=== PATIENT | female | born 2000 | race Caucasian/White ===

== ENCOUNTER 2020-02-06 23:54 | Emergency (ER) | payer OTHER ==
[2020-02-07 02:17] LABS: ABSOLUTE MONOCYTES (AUTO) 0.3 10^3/uL (0.1-1.4); ABSOLUTE NEUT (AUTO) 2.5 10^3/uL (1.7-8.2); BASOPHILS % (AUTO) 0.4 % (0-2); HEMOGLOBIN 12.3 g/dL (12.0-15.5); LYMPHOCYTES % (AUTO) 40.9 % (13-45); MEAN CORPUSCULAR HEMOGLOBIN 30.4 pg (27.0-33.4); MEAN CORPUSCULAR VOLUME 87 fl (80-97); MONOCYTES % (AUTO) 6.8 % (3-13); PLATELET COUNT 194 10^3/uL (150-450); RED BLOOD COUNT 4.03 10^6/uL (3.72-5.28); RED CELL DISTRIBUTION WIDTH 12.8 % (11.5-14.0); SEGMENTED NEUTROPHILS % (AUTO) 50.9 % (42-78); TOTAL CELLS COUNTED % (AUTO) 100 %; WHITE BLOOD COUNT 4.8 10^3/uL (4.0-10.5)
[2020-02-07] MEDS ORDERED: MORPHINE SULFATE 10 MG/ML INJ IV ONE (02:25)
[2020-02-07] MEDS ORDERED: NORMAL SALINE 1000 ML 1,000 ML IV ONE (02:26)
[2020-02-07] MEDS ORDERED: ONDANSETRON HCL INJ/PF 4 MG/2 ML SDV IV ONE (02:26)
[2020-02-07 02:32] LABS: ALBUMIN 4.2 g/dL (3.5-5.0); ALKALINE PHOSPHATASE 48 U/L (38-126); ANION GAP 7 (5-19); ASPARTATE AMINO TRANSFERASE 18 U/L (14-36); BILIRUBIN,DIRECT 0.2 mg/dL (0.0-0.4); BILIRUBIN,TOTAL 1.4 mg/dL (0.2-1.3); BLOOD UREA NITROGEN 9 mg/dL (7-20); CALCIUM 9.1 mg/dL (8.4-10.2); CARBON DIOXIDE 25 mmol/L (22-30); CHLORIDE 107 mmol/L (98-107); GLUCOSE 91 mg/dL (75-110); POTASSIUM 4.6 mmol/L (3.6-5.0); TOTAL PROTEIN 6.7 g/dL (6.3-8.2)
--- NOTE | 2020-02-07 02:49 | ER Document Report ---
ED GI/ - General Chief Complaint: Abdominal Pain Stated Complaint: FLANK PAIN Time Seen by Provider: 02/07/20 02:13 Notes: Patient is a 19-year-old female that comes emergency department for chief complaint of right upper abdominal pain and right flank pain. She states pain started 2 days ago and now has become constant, she states she cannot become comfortable or sleep tonight because of the pain. She denies chest pain, difficulty breathing, nausea, vomiting, dysuria, or abnormal bowel movements. She denies change with eating. She denies any surgeries, daily medications, or diagnosed medical history. She denies recreational drugs or alcohol. - Related Data Allergies/Adverse Reactions: Penicillins Allergy (Verified 02/07/20 01:21) Home Medications: cipro 500mg Past Medical History - General Information source: Patient - Social History Smoking Status: Never Smoker Chew tobacco use (# tins/day): No Frequency of alcohol use: Rare Drug Abuse: None Lives with: Family Family History: Reviewed & Not Pertinent Patient has homicidal ideation: No - Immunizations Immunizations up to date: Yes Hx Diphtheria, Pertussis, Tetanus Vaccination: Yes Review of Systems - Review of Systems Constitutional: No symptoms reported EENT: No symptoms reported Cardiovascular: No symptoms reported Respiratory: No symptoms reported Gastrointestinal: See HPI Genitourinary: No symptoms reported Female Genitourinary: No symptoms reported Musculoskeletal: No symptoms reported Skin: No symptoms reported Hematologic/Lymphatic: No symptoms reported Neurological/Psychological: No symptoms reported Physical Exam - Vital signs Vitals: Temp Pulse Resp BP Pulse Ox 99.1 F 64 14 137/73 H 97 02/07/20 00:12 02/07/20 00:12 02/07/20 00:12 02/07/20 00:12 02/07/20 00:12 - Notes Notes: GENERAL: Alert, interacts well. No acute distress. HEAD: Normocephalic, atraumatic. EYES: Pupils equal, round, and reactive to light. Extraocular movements intact. ENT: Oral mucosa moist, tongue midline. Oropharynx unremarkable. Airway patent. Nares patent, sinuses non-tender, ear canals unremarkable, TM's intact. NECK: Full range of motion. Supple. Trachea midline. No lymphadenopathy. LUNGS: Clear to auscultation bilaterally, no wheezes, rales, or rhonchi. No respiratory distress. Non-tender chest wall. HEART: Regular rate and rhythm. No murmur ABDOMEN: Tenderness in the right mid to upper abdomen which is specific and re producible but there is no guarding. Remaining abdomen unremarkable. No distention, no rigidity, bowel sounds present throughout. GENITOURINARY: Deferred EXTREMITIES: Moves all 4 extremities spontaneously. No edema, normal radial and dorsalis pedis pulses bilaterally. No cyanosis. BACK: No CVA tenderness. No cervical, thoracic, lumbar midline tenderness. No saddle anesthesia, normal distal neurovascular exam. Moves all extremities in full range of motion. NEUROLOGICAL: Alert and oriented x3. Normal speech. Cranial nerves II through XII grossly intact. Strength 5/5 in all extremities. PSYCH: Normal affect, normal mood. SKIN: Warm, dry, normal turgor. No rashes or lesions noted. Course - Re-evaluation Re-evalutation: Patient with right upper abdomen tenderness but no guarding. Remaining abdomen unremarkable. No CVA tenderness. Unremarkable vital signs. Patient is well- appearing without any signs of distress. CBC, chemistry, lipase unremarkable, test is negative, urinalysis unremarkable. Ultrasound of the right kidney and right upper abdomen unremarkable for acute findings. Reevaluate patient. Patient definitely seems to have abdominal pain, does not appear to be chest pain or pleurisy, no signs of trauma. Very low suspicion of acute abdomen. Discussed CAT scan but this was deferred because I do not think patient has acute appendicitis based on her exam, decision was made after discussion with patient to treat for suspected bowel pain although we did discuss specific return precautions for signs of acute abdomen. Patient states understanding and agreement. Stable and well-appearing at time of discharge. - Vital Signs Vital signs: Temp Pulse Resp BP Pulse Ox 98.8 F 62 16 126/68 H 98 02/07/20 04:20 02/07/20 04:20 02/07/20 04:20 02/07/20 04:20 02/07/20 04:20 - Laboratory Result Diagrams: 02/07/20 02:08 02/07/20 02:08 Laboratory results interpreted by me: 02/07/20 02/07/20 02/07/20 02:08 02:08 02:08 Hct 35.0 L Total Bilirubin 1.4 H Urine Ketones TRACE H Ur Leukocyte Esterase SMALL H Discharge - Discharge Clinical Impression: Flank pain Abdominal pain Qualifiers: Abdominal location: generalized Qualified Code(s): R10.84 - Generalized abdominal pain Condition: Stable Disposition: HOME, SELF-CARE Additional Instructions: Your work-up is reassuring. Based on your evaluation and exam I most strongly suspect that the pain is from bowel. I recommend that you take the Colace for the next several days, take the Bentyl if needed for pain/cramping, you can also take [id number] ibuprofen and Tylenol if needed. Symptoms should simply resolve with time. Follow-up with primary care. Return if you worsen including severe worsening pain, vomiting, fever, difficulty breathing, or any other concerning or worsening symptoms. Prescriptions: Dicyclomine HCl [Bentyl 20 mg Tablet] 20 mg PO QID PRN #20 tablet PRN Reason: Docusate Sodium [Colace 100 mg Capsule] 100 mg PO ASDIR PRN #30 capsule PRN Reason: Forms: Return to Work
[2020-02-07 02:55] LABS: APPEARANCE,URINE SLIGHTLY-CLOUDY; BILIRUBIN,URINE NEGATIVE (NEGATIVE); COLOR,URINE YELLOW; GLUCOSE, URINE NEGATIVE (NEGATIVE); KETONES,URINE TRACE mg/dL (NEGATIVE); LEUKOCYTE ESTERASE,URINE SMALL (NEGATIVE); NITRITE,URINE NEGATIVE (NEGATIVE); PROTEIN,URINE NEGATIVE (NEGATIVE); URINE SPECIFIC GRAVITY 1.014; UROBILINOGEN,URINE NEGATIVE mg/dL (<2.0)
--- NOTE | 2020-02-07 03:52 | RADIOLOGY REPORT (SQ) ---
EXAM DESCRIPTION: US ABDOMEN LIMITED COMPLETED DATE/TME: 02/07/2020 02:26 CLINICAL HISTORY: 19 years, Female, RUQ COMPARISON: None. TECHNIQUE: Limited right upper quadrant ultrasound LIMITATIONS: None. FINDINGS: The liver is homogenous in echotexture without focal lesion. No gallstones or gallbladder wall thickening. The CBD measures 3.7 mm. The visualized pancreas, abdominal aorta, right kidney are unremarkable. No ascites IMPRESSION: Negative exam copyright 2010 [employer]- All Rights Reserved
[2020-02-07 04:28] VITALS: BP 126/68
== END 2020-02-07 04:29 | disposition home or self-care (01) ==
LOC: ER 23:54
DX: R10.84 Generalized abdominal pain (principal); R10.811 Right upper quadrant abdominal tenderness; Z79.2 Long term (current) use of antibiotics; Z88.0 Allergy status to penicillin
CPT/HCPCS: 99284; 96361; 96374; 96375; 36415; 83690; 85025; 81025; 80053; 81001; 76705; J2270; J2405; J7030